=== PATIENT | female | born 1960 | race Caucasian/White ===

== ENCOUNTER 2017-12-28 10:45 | Day surgery (SDC) | payer MEDICARE, OTHER ==
[2017-12-28] MEDS ORDERED: LYRICA50 MG PO (11:10)
[2017-12-28] MEDS ORDERED: ADULT LOW DOSE81 MG PO (11:11)
[2017-12-28] MEDS ORDERED: PRAVASTATIN SOD10 MG PO (11:11)
[2017-12-28] MEDS ORDERED: PRAMIPEXOLE D0.25 MG PO (11:11)
--- NOTE | 2017-12-28 13:03 | NUR ---
12/28/17 Mark3 Alma Jaimes 1257 PT ARRIVED TO PACU ON 2L VIA NC, RESP EVEN AND UNLABORED. PT TALKING AND ASKED TO REMOVE NC. 1259 O2 REMOVED. PT REMAINS IN PRONE AND REPORTS NO PAIN OR NAUSEA.
== END 2017-12-28 13:28 | disposition home or self-care (01) ==
LOC: DS 10:45 → OPS 10:45 → DS 12:00 → OPS 13:28
PROVIDERS: Specialist
PROC: 079T3ZX Drainage of Bone Marrow, Percutaneous Approach, Diagnostic (ICD-10-PCS; 2017-12-28)
PROC: 07DR3ZX Extraction of Iliac Bone Marrow, Percutaneous Approach, Diagnostic (ICD-10-PCS; principal; 2017-12-28 12:00)
DX: D47.3 Essential (hemorrhagic) thrombocythemia (principal); D47.2 Monoclonal gammopathy; D72.829 Elevated white blood cell count, unspecified; F17.210 Nicotine dependence, cigarettes, uncomplicated; J44.9 Chronic obstructive pulmonary disease, unspecified; E78.5 Hyperlipidemia, unspecified; M79.7 Fibromyalgia; G47.33 Obstructive sleep apnea (adult) (pediatric); F32.9 Major depressive disorder, single episode, unspecified; F41.9 Anxiety disorder, unspecified; M19.90 Unspecified osteoarthritis, unspecified site; K75.81 Nonalcoholic steatohepatitis (NASH); Z79.82 Long term (current) use of aspirin; Z79.899 Other long term (current) drug therapy; Z88.0 Allergy status to penicillin; Z88.8 Allergy status to other drugs, medicaments and biological substances
CPT/HCPCS: 36415; 80053; 82232; 82668; 83615; 85025; 99153; G0500; J2250; J3010; J7120